=== PATIENT | female | born 1990 ===

== ENCOUNTER 2017-07-26 20:29 | Emergency (ER) | payer MEDICAID, OTHER ==
[2017-07-26 20:30] VITALS: BMI 30.8
[2017-07-26 20:42] VITALS: BP 134/84; PULSE 74; RESP 18; TEMP 97.9; O2SAT 100
[2017-07-26] MEDS ORDERED: Albuterol-Ipratrop 3 mg / 0.5 (3 ml) UD INH STA (20:57)
--- NOTE | 2017-07-26 21:06 | ED PDOC ---
HPI: CCC, URI, Sore Throat Time Seen by Provider: 07/26/17 20:57 Chief Complaint (Nursing): Cough, Cold, Congestion Chief Complaint (Provider): Cough History Per: Patient History/Exam Limitations: no limitations Have you had recent travel within the past 21 days to any of the following countries: [place], [place], [place] or [place]?: No Onset/Duration Of Symptoms: Days (x9) Current Symptoms Are (Timing): Still Present Location Of Pain: None Sick Contacts (Context): None Associated Symptoms: Cough. denies: Fever, Chills Ear Symptoms: Bilateral: None Additional Complaint(s): 27 y/o female with a past medical history of asthma and bronchitis presents to the ED complaining of a dry cough x9 days. The patient states that she has tried using her inhaler and pump for relief but they have not been helping. Patient also notes some lung and nasal congestion. Past Medical History Vital Signs: Last Vital Signs Temp 97.9 F 07/26/17 20:40 Pulse 74 07/26/17 20:40 Resp 18 07/26/17 20:40 BP 134/84 07/26/17 20:40 Pulse Ox 100 07/26/17 21:12 - Medical History PMH: Asthma, Bronchitis - Surgical History Surgical History: Tonsillectomy, - Family History Family History: States: Unknown Family Hx - Immunization History Hx Tetanus Toxoid Vaccination: No Hx Influenza Vaccination: No Hx Pneumococcal Vaccination: No - Home Medications Home Medications: Ambulatory Orders Medication Instructions Recorded Albuterol HFA [Ventolin HFA 90 2 puff IH [id number] PRN 01/25/17 mcg/actuation (8 g)] Albuterol HFA [Ventolin HFA 90 2 puff IH [id number] #1 puff 03/21/17 mcg/actuation (8 g)] Azithromycin [Zithromax] 250 mg PO DAILY #6 tab 03/21/17 Benzonatate [Tessalon Perle] 100 mg PO TID PRN #15 capsule 03/21/17 predniSONE [Prednisone] 40 mg PO DAILY #8 tab 03/21/17 Albuterol 0.083% [Albuterol 0.083% 2.5 mg IH Q8 PRN #100 neb 07/26/17 Inhal Courtney (2.5 mg/3 ml) UD] Albuterol HFA [Ventolin HFA 90 2 puff IH [id number] PRN #1 inh 07/26/17 mcg/actuation (8 g)] Pseudoephedrine [Sudafed Tab] 60 mg PO Q6 PRN #15 tab 07/26/17 predniSONE [predniSONE Tab] 2 tab PO DAILY #10 tab 07/26/17 - Allergies Allergies/Adverse Reactions: Allergies Allergy/AdvReac Type Severity Reaction Status Date / Time ibuprofen AdvReac other Verified 07/26/17 20:43 Review of Systems ROS Statement: Except As Marked, All Systems Reviewed And Found Negative ENT: Positive for: Nose Congestion Respiratory: Positive for: Cough (dry) - ECG O2 Sat by Pulse Oximetry: 100 (RA) Pulse Ox Interpretation: Normal - Progress ED Course And Treament: duoneb x 1 dose prednisone 40 mg x 1 dose Medical Decision Making Medical Decision Makin Initial Impression 27 y/o female presenting with Initial Plan: * Duoneb 3mL INH * PredniSONE Tab 40mg PO * Peak Flow * Reevaluation Documented by Sydni Smith acting as a scribe for Tanya Morgan PA-C. All medical record entries made by the Scribe were at my direction and personally dictated by me. I have reviewed the chart and agree that the record accurately reflects my personal performance of the history, physical exam, medical decision making, and the department course for this patient. I have also personally directed, reviewed, and agree with the discharge instructions and disposition. Disposition - Clinical Impression Clinical Impression: URI, acute, Asthma exacerbation - Patient ED Disposition Is Patient to be Admitted: No - Disposition Disposition: Routine/Home Disposition Time: 22:02 Condition: FAIR Prescriptions: Albuterol HFA [Ventolin HFA 90 mcg/actuation (8 g)] 2 puff IH [id number] PRN #1 inh PRN Reason: Shortness Of Breath Albuterol 0.083% [Albuterol 0.083% Inhal Courtney (2.5 mg/3 ml) UD] 2.5 mg IH Q8 PRN #100 neb PRN Reason: Shortness Of Breath predniSONE [predniSONE Tab] 2 tab PO DAILY #10 tab Pseudoephedrine [Sudafed Tab] 60 mg PO Q6 PRN #15 tab PRN Reason: Nasal Congestion Instructions: Asthma (DC), Upper Respiratory Infection (ED) Forms: [facility] (T[place]isian), [facility] ED School/Work Excuse
[2017-07-26] MEDS ORDERED: Albuterol-Ipratrop 3 mg / 0.5 (3 ml) UD ONE (21:40)
== END 2017-07-26 22:14 | disposition home or self-care (01) ==
LOC: H.ER 20:29
DX: J45.901 Unspecified asthma with (acute) exacerbation (principal); J06.9 Acute upper respiratory infection, unspecified; Z88.6 Allergy status to analgesic agent